=== PATIENT | male | born 1985 | race Caucasian/White ===

== ENCOUNTER 2024-10-15 07:57 | Emergency (ER) | payer OTHER, SELFPAY ==
[2024-10-15 08:02] VITALS: BP 122/85; PULSE 77; RESP 16; TEMP 36; O2SAT 100; BMI 30.8
[2024-10-15 08:19] LABS: MANUAL DIFF FLAG NO
[2024-10-15 08:22] LABS: Basophils Absolute Auto 0.1 X10*3/uL (0.0-0.2); Basophils Percent Auto 0.5 % (0-2); Eosinophils Absolute Auto 0.1 X10*3/uL (0.0-0.4); Eosinophils Percent Auto 0.5 % (0-4); Hematocrit 46.1 % (42.0-52.0); Hemoglobin 15.3 g/dl (14.0-18.0); Imm Gran Abs Auto 0.03 X10*3/uL (0.00-0.03); Imm Gran Pct Auto 0.2 % (0.0-0.4); Lymphocytes Absolute Auto 1.6 X10*3/uL (1.2-4.9); Lymphocytes Percent Auto 12.9 % (20-40); Mean Corpuscular HGB Conc 33.2 g/dl (31.0-36.0); Mean Corpuscular Hemoglobin 28.8 pg (27.0-33.0); Mean Corpuscular Volume 86.7 fL (80.0-98.0); Mean Platelet Volume 9.6 fL (9.4-12.4); Monocytes Absolute Auto 0.5 X10*3/uL (0.1-1.2); Monocytes Percent Auto 4.1 % (2-11); Neutrophils Absolute Auto 10.3 x10*3/uL (2.0-8.3); Neutrophils Percent Auto 81.8 % (45-73); Platelet Count 252 X10*3/uL (160-400); Red Blood Count 5.32 X10*6/uL (4.60-5.80); White Blood Count 12.6 X10*3/uL (4.8-10.8)
[2024-10-15 08:41] LABS: Alanine Aminotransferase 32 U/L (0-40); Albumin Level 4.5 g/dL (3.5-5.0); Alkaline Phosphatase 118 U/L (39-117); Anion Gap 11 (12-20); Aspartate Amino Transferase 31 U/L (5-37); Bilirubin Total 0.8 mg/dL (0.0-1.0); Blood Urea Nitrogen 12 mg/dL (9-16); Calcium 9.2 mg/dL (8.4-10.2); Carbon Dioxide 28 mmol/L (22-29); Chloride 104 mmol/L (96-108); Creatinine Clr Calc Pharmacy 154.4; Estimated Glomerular Filt Rate > 60; Glucose Random 108 mg/dL (60-115); Lipase 11 U/L (8-78); Potassium 3.9 mmol/L (3.3-5.1); Sodium 139 mmol/L (135-145); Total Protein 8.3 g/dL (6.5-8.0)
[2024-10-15 09:06] LABS: Influenza A PCR NEGATIVE (Negative); Influenza B PCR NEGATIVE (Negative); Resp Syncy Virus RNA Qual PCR NEGATIVE (Negative); SARS COV2 PCR INHOUSE NEGATIVE (Negative)
--- NOTE | 2024-10-15 10:57 | ED.ABDPAIN ---
HPI - Abdominal Pain General Chief Complaint: Abdominal Pain Stated Complaint: gallbladder pain Time Seen by Provider: 10/15/24 11:00 Source: patient and old records reviewed Mode of arrival: ambulatory Limitations: no limitations History of Present Illness ED Provider: LEA HPI narrative: 39 yo male with PMH of biliary colic started with pain last night and nausea. He has known gallstones denies fevers, diarrhea. He cannot think of a trigger. He states it feels the same as gallstone attack. He notes this one lasted longer. In waiting room pain is gone and he is asking to go home. He states he feels fine and his works here and he can follow up as outpatient. MD elicited complaint: abdominal pain Pertinent past history: other (biliary colic) Onset (ago): day(s) (last night) Pain Consistency: now resolved Location: epigastric and RUQ Severity: moderate Quality: aching Radiation: none Migration to: no migration Exacerbating factors: movement Relieving factors: nothing Context: history of similar episodes Associated symptoms: nausea Related Data Previous Rx's ?Medication ?Instructions ?Recorded hydrocodone 5 mg-acetaminophen 325 1 tab PO Q6H PRN pain #10 tabs 10/15/24 mg tablet ondansetron 4 mg disintegrating 4 mg PO Q8H PRN nausea and 10/15/24 tablet vomiting #20 tabs Allergies Allergy/AdvReac Type Severity Reaction Status Date / Time No Known Allergies Allergy Verified 10/15/24 08:04 Review of Systems Review of Systems Constitutional : No Weight loss, No Fever, No Chills ENT/Mouth : No sore throat, No Rhinorrhea Eyes: No Swelling, No Redness Cardiovascular : No Chest Pain, No SOB, NoEdema Respiratory : No Cough, No Sputum, No Wheezing Gastrointestinal : Positive Nausea, no Vomiting, no Diarrhea, positive abdominal Pain, No Hematochezia, No Melena Genitourinary : No Dysuria, No Urinary Frequency, No Hematuria, No Urgency Musculoskeletal : No joint pain, No Myalgias, No Joint Swelling Skin : No Skin Lesions, No rash Neuro : No Weakness, No Numbness, No Dizziness, No Headache All other systems reviewed and are negative. [facility] Past Medical History Attestation statement: The following information was validated with the patient. Source: old records reviewed Medical History (Updated 10/15/24 @ 11:02 by Ashley Munoz DO) Gallstones Social History Social History (Updated 10/15/24 @ 11:02 by Ashley Munoz DO) Patient Tobacco Use Status: Never used Tobacco Advance Directives: No Advance Directives Information Provided: Yes Do you have a plan to hurt others: No Plan Physical Exam ED Vital Signs: Vital Signs - 24 hr 10/15/24 08:02 Temperature 96.8 F Pulse Rate 77 Respiratory Rate 16 Blood Pressure 122/85 Pulse Oximetry 100 Oxygen Delivery Method Room Air BMI result Body Mass Index 30.8 Appearance: Alert. Oriented X3. No acute distress. Eyes: Pupils equal, round and reactive to light. ENT: Pharynx normal. Neck: Normal inspection. Neck supple. CVS: Normal heart rate and rhythm. Pulses normal. Respiratory: No respiratory distress. Breath sounds normal. Abdomen: Soft and nontender. neg carmona's sign Skin: Skin warm and dry. Normal skin color. Normal skin turgor. Extremities: No lower extremity edema. No calf ttp Neuro: Oriented X 3. No motor deficit. No sensory deficit. CN2-12 intact Medical Decision Making Medical Decision Making [facility] Narrative: 39 yo male hx of biliary colic here with c/o RUQ pain and nausea last night but pain resolved, no abdominal ttp he feels much better and is asking to go home with outpatient follow up. Labs reassuring and no pain right now he declines US it is reasonable to treat with low fat diet and refer to surgery. He has no other pain or symptoms at this time. Differential Diagnosis Differential Diagnoses: The differential diagnosis associated with the presentation includes biliary colic, cholecystitis Admission/Observation Consideration of admission/observation: Escalation of care including admission/observation considered labs reassuring and patient is reliable and asking to go home Lab Data [facility] Lab Attestation statement: I reviewed the patient's lab results. 10/15/24 08:16 10/15/24 08:16 Labs: Lab Results 10/15/24 Range/Units 08:16 WBC 12.6 H (4.8-10.8) X10*3/uL RBC 5.32 (4.60-5.80) X10*6/uL Hgb 15.3 (14.0-18.0) g/dl Hct 46.1 (42.0-52.0) % MCV 86.7 (80.0-98.0) fL MCH 28.8 (27.0-33.0) pg MCHC 33.2 (31.0-36.0) g/dl RDW 12.0 (11.0-16.0) % Plt Count 252 (160-400) X10*3/uL MPV 9.6 (9.4-12.4) fL Immature Gran % (Auto) 0.2 (0.0-0.4) % Neut % (Auto) 81.8 H (45-73) % Lymph % (Auto) 12.9 L (20-40) % [place] % (Auto) 4.1 (2-11) % Eos % (Auto) 0.5 (0-4) % Baso % (Auto) 0.5 (0-2) % Lymph # (Auto) 1.6 (1.2-4.9) X10*3/uL [place] # (Auto) 0.5 (0.1-1.2) X10*3/uL Eos # (Auto) 0.1 (0.0-0.4) X10*3/uL Baso # (Auto) 0.1 (0.0-0.2) X10*3/uL Abs Immat Gran (auto) 0.03 (0.00-0.03) X10*3/uL Absolute Neuts (auto) 10.3 H (2.0-8.3) x10*3/uL Absolute Nucleated RBC 0.000 (0.0-0.012) X10*3/uL Nucleated RBC % (auto) 0.0 (0.0-0.2) /100WBC Sodium 139 (135-145) mmol/L Potassium 3.9 (3.3-5.1) mmol/L Chloride 104 (96-108) mmol/L Carbon Dioxide 28 (22-29) mmol/L Anion Gap 11 L (12-20) BUN 12 (9-16) mg/dL Creatinine 0.86 (0.5-1.4) mg/dL Estim Creat Clear Calc 154.4 Estimated GFR > 60 Random Glucose 108 (60-115) mg/dL Calcium 9.2 (8.4-10.2) mg/dL Total Bilirubin 0.8 (0.0-1.0) mg/dL AST 31 (5-37) U/L ALT 32 (0-40) U/L Alkaline Phosphatase 118 H (39-117) U/L Total Protein 8.3 H (6.5-8.0) g/dL Albumin 4.5 (3.5-5.0) g/dL Lipase 11 (8-78) U/L Influenza Type A (PCR) NEGATIVE (Negative) Influenza Type B (PCR) NEGATIVE (Negative) RSV RNA Qual (PCR) NEGATIVE (Negative) SARS-CoV-2 RNA (RT-PCR) NEGATIVE (Negative) External Record Review External record reviewed: Outpatient record Tests considered The following testing was considered but not selected: US but he declined Prescription Management I considered prescription management with: Pain Medication and Other Discharge Plan Discharge Clinical Impression: Biliary colic Abdominal pain Qualifiers: Abdominal location: right upper quadrant Qualified Code(s): R10.11 - Right upper quadrant pain Patient Disposition: Home, Self-Care Instructions: Biliary Colic (ED), Acute Abdominal Pain (ED) Additional Instructions: return for any worsening symptoms or concerns ultrasound offered but declined at this time come back at any time LOW FAT DIET follow up with surgery Prescriptions: New ondansetron 4 mg tablet,disintegrating 4 mg PO Q8H PRN (Reason: nausea and vomiting) Qty: 20 0RF hydrocodone-acetaminophen 5-325 mg tablet 1 tab PO Q6H PRN (Reason: pain) Qty: 10 0RF Rx Instructions: partial fill okay; Partial Fill upon patient request. Referrals: [facility] [place] General Surgeons [Provider Group] Stand Alone Forms: Work/School Release Discharge Date/Time: 10/15/24 11:05 Print Language: Japanese
== END 2024-10-15 11:05 | disposition home or self-care (01) ==
PROVIDERS: Emergency Provider Emergency Medicine; PCP Internal Medicine
DX: K80.50 Calculus of bile duct without cholangitis or cholecystitis without obstruction (principal); R10.11 Right upper quadrant pain; Z03.818 Encounter for observation for suspected exposure to other biological agents ruled out
CPT/HCPCS: 0241U; 80053; 83690; 85025; 99281; 99283

== ENCOUNTER → 2024-10-26 11:46 | Outpatient (BNVA) | payer OTHER, SELFPAY | PROVIDERS: PCP Internal Medicine; Visit Provider Surgery ==

== ENCOUNTER → 2024-10-30 12:24 | Outpatient (BNV) | payer OTHER, SELFPAY | PROVIDERS: PCP Internal Medicine; Visit Provider Internal Medicine | DX: Z01.810 Encounter for preprocedural cardiovascular examination (principal) | CPT/HCPCS: 93010 ==

== ENCOUNTER 2024-11-22 10:57 | Day surgery (SDC) | payer OTHER, SELFPAY ==
--- NOTE | 2024-10-30 12:24 | ECG_ITS ---
Test Reason : PREOP Blood Pressure : */* mmHG Vent. Rate : 76 BPM Atrial Rate : 76 BPM P-R Int : 126 ms QRS Dur : 102 ms QT Int : 384 ms P-R-T Axes : 55 48 36 degrees QTcB Int : 432 ms Normal sinus rhythm Normal ECG No previous ECGs available Referred By: Mike Gutiérrez Electronically Signed By: TAY OSUNA
[2024-11-13 13:42] LABS: MANUAL DIFF FLAG NO
[2024-11-13 15:27] LABS: Basophils Absolute Auto 0.1 X10*3/uL (0.0-0.2); Basophils Percent Auto 0.8 % (0-2); Eosinophils Absolute Auto 0.2 X10*3/uL (0.0-0.4); Hematocrit 42.8 % (42.0-52.0); Hemoglobin 13.8 g/dl (14.0-18.0); Imm Gran Abs Auto 0.03 X10*3/uL (0.00-0.03); Imm Gran Pct Auto 0.3 % (0.0-0.4); Lymphocytes Absolute Auto 2.2 X10*3/uL (1.2-4.9); Lymphocytes Percent Auto 23.4 % (20-40); Mean Corpuscular HGB Conc 32.2 g/dl (31.0-36.0); Mean Corpuscular Hemoglobin 28.6 pg (27.0-33.0); Mean Corpuscular Volume 88.6 fL (80.0-98.0); Mean Platelet Volume 10.7 fL (9.4-12.4); Monocytes Absolute Auto 0.6 X10*3/uL (0.1-1.2); Monocytes Percent Auto 6.5 % (2-11); Neutrophils Absolute Auto 6.2 x10*3/uL (2.0-8.3); Platelet Count 233 X10*3/uL (160-400); Red Blood Count 4.83 X10*6/uL (4.60-5.80); Red Cell Distribution Width 12.3 % (11.0-16.0); White Blood Count 9.2 X10*3/uL (4.8-10.8)
[2024-11-13 15:36] LABS: Prothrombin Time 11.5 SEC (10.9-12.4)
[2024-11-13 15:38] LABS: Partial Thromboplastin Time 29.8 SEC (26.0-36.8)
[2024-11-13 16:06] LABS: Estimated Average Glucose 88 mg/dL; Hemoglobin A1C 101.4459 umol/L; Hemoglobin A1c % 4.7 % (<6.0); Total Hemoglobin (HGBA1C) 3582.4587 umol/L
[2024-11-13 17:20] LABS: Alanine Aminotransferase 51 U/L (0-40); Albumin Level 4.2 g/dL (3.5-5.0); Alkaline Phosphatase 106 U/L (39-117); Anion Gap 8 (12-20); Aspartate Amino Transferase 88 U/L (5-37); Bilirubin Total 0.5 mg/dL (0.0-1.0); Blood Urea Nitrogen 14 mg/dL (9-16); Carbon Dioxide 28 mmol/L (22-29); Chloride 107 mmol/L (96-108); Estimated Glomerular Filt Rate > 60; Glucose Random 89 mg/dL (60-115); Potassium 3.8 mmol/L (3.3-5.1); Sodium 139 mmol/L (135-145); Total Protein 7.8 g/dL (6.5-8.0)
[2024-11-20 08:55] VITALS: BMI 30.7
[2024-11-22] VITALS (9 sets, daily range): BP systolic 113–134; BP diastolic 66–79; PULSE 78–106; RESP 14–18; TEMP 36.6; O2SAT 96–100; BMI 29.9
[2024-11-22] MEDS: Lactated Ringers 1,000 ML 100 ML IVCONT (11:38)
--- NOTE | 2024-11-22 12:09 | MHC.SHP ---
Pre-Procedural Eval Section A - 24 Hr Update-Section A only Date of Service: 11/22/24 The patient is an INPATIENT: No The patient has been examined within 24 hours of the surgical procedure. The History & Physical has been completed within 30 days and I have reviewed it.: Yes Section B - Complete if H&P > 30 days Chief Complaint: Calculus of gallbladder without cholecystitis Relevant Family History (Specify if Yes): No Relevant Social History: None Present Medications: None Medical History: No relevant PMH History of Previous Operations: No relevant previous surgery Allergies: Allergies Allergy/AdvReac Type Severity Reaction Status Date / Time No Known Allergies Allergy Verified 11/22/24 11:18 Review of Systems Sugical H&P ROS: Negative: Constitution, Cardiovascular, Respiratory, Neurological, Psychiatric, Hem-Onc, Allergic/Immunologic, Gastrointestinal, Genitourinary, Musculoskeletal, Integumentary, Endocrine and Eyes/Ears/Nose/Throat Exam Surgical H&P Exam: Normal: HEENT, Normal: Heart, Normal: Lungs, Normal: Extremities, Normal: Abdomen, Normal: Skin and Normal: Neurological Plan Diagnosis/Plan: Unchanged I have reviewed the history and physical and performed a pertinent physical examination on my patient. No changes have occurred unless specified. Time Spent With Patient Time: Total time managing care of this patient today ____ minutes.
--- NOTE | 2024-11-22 12:18 | P.BOP_ITS ---
Brief Operative Note Date of Service: 11/22/24 Pre-op diagnosis: Symptomatic cholelithiasis Post-op diagnosis: same Procedure: PROCEDURE DATE: 11/22/2024 PREOPERATIVE DIAGNOSIS: Symptomatic cholelithiasis POSTOP ERATIVE DIAGNOSIS: Same as above. PROCEDURE: Laparoscopic cholecystectomy Surgeon: Delvin Gutiérrez M.D., Ph.D. Physical Therapist Center Manager: Demar Bishop PA-C Anesthesia: General endotracheal anesthesia Estimated blood loss: Minimal FINDINGS AND PROCEDURE: OPERATIVE INDICATIONS: The patient is a 39year old male who has a one year history of RUQ postprandial abdominal pain. Recent abdominal ultrasound showed cholelithiasis which appears to be symptomatic. I recommended cholecystectomy. Risks and complications of the surgery were discussed with the patient in advance, particularly the postoperative bleeding, infection, DVT or PE, bile leak, major bile duct injury that may require additional surgical intervention, cardiac, pulmonary or renal complications among others. The patient understood the risks and was in agreement with the plan. PROCEDURE: After informed consent was obtained by the patient, the patient was transferred to the Operating Room and was placed in the supine position. The patient was given preoperative antibiotics and after successful induction of general anesthesia, pneumatic compression devices were placed. The patient was then prepped and draped in the usual sterile manner and abdominal access was established with the Fox technique. The abdomen was insufflated with C02 to a pressure of 15 mmHg. A 5 mm Versi-step port was placed, slightly to the right and superior from the umbilicus. The 5 mm camera was introduced. We inspected the area where the port had been placed and there was no injury. The patient was then placed initially in a steep reverse Trendelenburg position and three additional ports were placed, specifically a 12 mm Versi-step port just to the right of the midline below the xiphoid process and two 5 mm Versi-step ports at the right upper quadrant and right flank. At that point the patient was placed in a steep reverse Trendelenburg position tilted to the left side. The gallbladder was retracted cephalad and laterally. ? PLEASE REVIEW TO INCLUDE THIS SENTENCE: There were dense adhesions between the omentum and the gallbladder wall that were taken down. The gallbladder was also enveloped within a large amount of fat and it was not visible almost at all initially. I took 60 minutes of careful dissection to seperate all these tissues and be able to identify the anatomy. Total operative time was 1 hour and 40 minutes. The peritoneal attachments of the gallbladder at the triangle of Calot posteriorly and anteriorly were taken down. The cystic duct and artery were both seen. The artery was crossing over the duct and made the dissection quite challenging. They were completely dissected free, skeletonized all the way to the infundibulum of the gallbladder. In a similar fashion we also cleaned theliver bed just behind the cystic artery to make sure there was no additional structures in this area. Oncewe confirmed that both structures were entering into the gallbladder and there were no other structures in the area, they were both clipped with two clips proximally, one distally and were cut in- between. We then using the electrocautery we slowly took down the gallbladder from the liver bed. Small areas of bleeding from the liver parenchyma were controlled with the cautery. After the gallbladder was completely detached from the liver bed, it was placed in an EndoCatch bag and was removed without difficulty from the xiphoid port. We then inspected the clips at the cystic duct and artery and were both in place. There was no active bleeding from the liver bed. At that point the patient was placed in supine position, we deflated the abdomen and we removed all ports under direct vision and no bleeding was noted from any of the port sites. The fascia of the 12 mm port was closed using a #1 Polysorb suture. 30cc Ropivacaine and 1% Lidocaine plain were used to infiltrate the fascial closure as well as all skin incisions. The wounds were irrigated with saline mixed with antibiotic solution and then the skin was closed with 4-0 Monocryl subcuticular sutures antibiotic- coated. Steri-strips and OpSites were used to cover all incisions. The patient extubated and was transferred in stable condition to the Recovery Room for further care. I was present and performed all steps of the procedure. Mr. Bishop was the costumer assistant. There were no residents to assist with this case. Delvin Gutiérrez M.D., Ph.D., F.A.C.S. Surgeon: Mike Gutiérrez MD Anesthesia: GETA, local and other (TAP block) Was an Physical Therapist Center Manager used for this Procedure?: No Physical Therapist Center Manager: Demar Bishop Estimated blood loss (mL): 10 IV fluids (mL): 1,700 Urine output (mL): 0 (No Folley to record output) Pathology: other (Gallbladder) Condition: stable Disposition: PACU
--- NOTE | 2024-11-22 12:30 | PC.NURSE ---
Surgical note and consent mention possible EGD, but not mentioned in History and Physical. Procedure mentioned to Dr. Espinoza to add EGD to 24hr update if this is plan. per MD EGD is not planned for today.
== END 2024-11-22 17:00 | disposition home or self-care (01) ==
PROVIDERS: PCP Internal Medicine; Visit Provider Surgery
PROC: 0FT44ZZ Resection of Gallbladder, Percutaneous Endoscopic Approach (ICD-10-PCS; CPT 47562; principal; 2024-11-22 13:10)
DX: K80.10 Calculus of gallbladder with chronic cholecystitis without obstruction (principal); K82.8 Other specified diseases of gallbladder; Z98.890 Other specified postprocedural states
CPT/HCPCS: 47562; 36415; 80053; 83036; 85025; 85610; 85730; 86850; 86900; 86901; 88304; 93005; J0131; J0690; J1100; J2003; J2250; J2371; J2405; J2704; J2795; J3010

== ENCOUNTER → 2024-11-22 10:57 | Outpatient (BNV) | payer OTHER, SELFPAY | PROVIDERS: PCP Internal Medicine; Visit Provider Surgery | DX: K80.20 Calculus of gallbladder without cholecystitis without obstruction (principal); K66.0 Peritoneal adhesions (postprocedural) (postinfection) | CPT/HCPCS: 47562 ==

== ENCOUNTER 2024-11-29 13:23 | Outpatient (AMB) | payer OTHER, SELFPAY ==
[2024-11-29 13:33] VITALS: BP 129/70; PULSE 93; BMI 29.6
--- NOTE | 2024-11-29 13:33 | A.OFFVIS_ITS ---
Vital Signs 11/29/24 13:33 Height 6 ft 2 in Weight 230 lb 4 oz BMI 29.6 BP 129/70 Pulse 93 Intake Visit Reasons: (OV) s/p Lap Chaparrita 11/22/24 Intake Note: Follow-up s/p lap chaparrita 11/22/24 feeling good Health And Wellness Coordinator Required: No Allergies No Known Allergies Allergy (Verified 11/22/24 11:18) HPI Comments Details: Patient is a pleasant 39-year-old male who returns to the office today in [facility] He is status post cholecystectomy performed on 11/22/2024 for symptomatic cholelithiasis. He reports overall doing well. He did have 1 episode where he sneezed causing abdominal pain but this resolved. He offers no other complaints. [facility] Medical History (Updated 10/26/24 @ 12:57 by Mike Gutiérerz MD) Gallstones Surgical History (Updated 11/29/24 @ 13:51 by RICARDO Hogan) Hx of appendectomy Hx of hernia repair Family History (Updated 10/26/24 @ 11:56 by Diane Simpson CMA) Mother No problems noted. Father Diabetes Daughter No problems noted. Daughter No problems noted. Social History (Updated 10/26/24 @ 11:57 by Diane Simpson CMA) Are you a primary child care cook to a significant other at home: No Do you presently have visiting nurse or other home services: No Alcohol intake: current Alcohol intake frequency: holidays/special occasions only Patient Tobacco Use Status: Never used Tobacco Physical Exam Vital Signs: Last Vital Signs Pulse 93 11/29/24 13:33 BP 129/70 11/29/24 13:33 BMI result Body Mass Index 29.6 GI Inspection: Yes incision (Clean, dry, intact.) Assessment & Plan Assessment & Plan (1) S/P laparoscopic cholecystectomy: Code(s): Z90.49 - Acquired absence of other specified parts of digestive tract Category: Surgical Plan: Seven days post laparoscopic cholecystectomy. Overall doing well. Pathology revealed chronic cholecystitis with cholelithiasis. Pathology reviewed with the patient. No questions. Follow-up in 6-8 weeks Coding Level of Care Code Global (10745) Diagnoses S/P laparoscopic cholecystectomy Z90.49
== END 2024-11-29 13:53 | disposition home or self-care (01) ==
PROVIDERS: PCP Internal Medicine; Visit Provider Physician Assistant Surgical
DX: Z90.49 Acquired absence of other specified parts of digestive tract (principal)
CPT/HCPCS: 99024

== ENCOUNTER → 2024-11-29 13:23 | Outpatient (BNVA) | payer OTHER, SELFPAY | PROVIDERS: PCP Internal Medicine; Visit Provider Physician Assistant Surgical ==

== ENCOUNTER 2025-01-18 10:30 | Outpatient (AMB) | payer OTHER, SELFPAY ==
--- NOTE | 2025-01-18 10:34 | A.OFFVIS_ITS ---
Intake Visit Reasons: (TV) s/p Lap Chaparrita 11/22/24 Allergies No Known Allergies Allergy (Verified 11/22/24 11:18) HPI Comments Details: Patient is a pleasant 39-year-old male who returns to the office today in follow-up. He is status post cholecystectomy performed on 11/22/2024 for symptomatic cholelithiasis. He reports overall doing well. He offers no complaints. Incisions have healed and he is monitoring how much weight he was lifting. No complaints of pain and no issues with his diet. [facility] Medical History (Updated 10/26/24 @ 12:57 by Mike Gutiérrez MD) Gallstones Surgical History (Updated 11/29/24 @ 13:51 by RICARDO Hogan) Hx of appendectomy Hx of hernia repair Family History (Updated 10/26/24 @ 11:56 by Diane Simpson CMA) Mother No problems noted. Father Diabetes Daughter No problems noted. Daughter No problems noted. Social History (Updated 10/26/24 @ 11:57 by Diane Simpson CMA) Are you a primary career services director to a significant other at home: No Do you presently have visiting nurse or other home services: No Alcohol intake: current Alcohol intake frequency: holidays/special occasions only Patient Tobacco Use Status: Never used Tobacco Telehealth Telehealth Telehealth Platform: Telephone Location of provider rendering services: practice address Location of patient: address on file Patient Identification confirmed using: Name, : Yes Telehealth method: voice only Patient verbally consented to treatment: Yes Patient verbally consented to billing insurance company: Yes Patient informed of any privacy concerns related to visit: Yes Minutes spent on Phone/Video with Pt.: 10 Assessment & Plan Assessment & Plan (1) S/P laparoscopic cholecystectomy: Code(s): Z90.49 - Acquired absence of other specified parts of digestive tract Category: Medical Plan: Patient is doing well postoperatively. He has no complaints of pain or dietary difficulties. He has no further restrictions and may resume his usual activity. Return to clinic as needed.
== END 2025-01-18 10:44 | disposition home or self-care (01) ==
LOC: HO.HBS 10:40
PROVIDERS: PCP Internal Medicine; Visit Provider Physician Assistant Surgical
DX: Z90.49 Acquired absence of other specified parts of digestive tract (principal)
CPT/HCPCS: 99024